=== PATIENT | female | born 1985 | race Caucasian/White ===

== ENCOUNTER → 2022-01-24 | Outpatient (CLI) | payer BC ==
[~2022-01-24] MED LIST: ATIVAN0.5 MG PO; KLONOPIN0.5 MG PO; NO HOME MEDICATIONS; PRENATAL1 TA1 PO; PREVACID 30MG30 M1 PO
== END ==
LOC: COL.RAD 08:35
DX: R10.13 Epigastric pain (principal)
CPT/HCPCS: A9537; J2805

== ENCOUNTER 2022-06-17 11:16 | Day surgery (SDC) | payer MEDICAID ==
[2022-06-17] VITALS (10 sets, daily range): BP systolic 110–130; BP diastolic 61–87; PULSE 67–98; TEMP 98.1–98.7
[~2022-06-17] VITALS: Ht 167.6 cm; Wt 75.7 kg
[2022-06-17] MEDS ORDERED: RETIN-A CR0.1 20GM TP ×2 (12:18→12:19)
[2022-06-17] MEDS ORDERED: MOTRIN 600600 MG/TAB PO (15:17)
[2022-06-17] MEDS ORDERED: NORCO 325 MG-51 TAB PO (15:17)
--- NOTE | 2022-06-17 18:10 | NUR ---
Pt recently arrived to the floor from [facility]. She is alert, but drowsy. Pt was dizzy walking from the [facility] cart to her bed. She has been resting for past 45 minutes. She still reports feeling a little dizzy. Pt does not have the urge to void at this time. Gave her ice water and jello
--- NOTE | 2022-06-17 21:45 | NUR ---
NOTIFIED DR BECK PT WISHES TO STAY THE NIGHT, HAVING MILD DIZZINESS WHEN STANDING UP. OKAYED BY DR BECK.
--- NOTE | 2022-06-17 21:47 | NUR ---
PT REPORTS MILD DISCOMFORT TO ABD AFTER BEING UP TO THE BATHROOM. MOTRIN 600MG PO GIVEN. INT TO [facility].
--- NOTE | 2022-06-17 23:30 | NUR ---
PT REPORTS GOOD RELIEF OF DISCOMFORT WITH MOTRIN.
[2022-06-18 03:18] VITALS: BP 106/55; PULSE 66; TEMP 98.4
--- NOTE | 2022-06-18 05:00 | NUR ---
PT REPORTS PAIN WITH ACTIVITY, NONE LAYING DOWN. MOTRIN 600MG PO GIVEN FOR ABD PAIN WITH ACTIVITY.
[2022-06-18 07:28] VITALS: BP 101/69; PULSE 66; TEMP 98.1
--- NOTE | 2022-06-18 08:16 | NUR ---
Patient awake and alert, sitting in bed. No dizziness, lightheadedness, or nausea reported this AM. Moderate pain in RUQ and back. States she would rather try to relieve pain with non narcotic medications. PRN given. Breakfast ordered, states she thins she will be ready to go home after breakfast.
--- NOTE | 2022-06-18 10:02 | NUR ---
Patient discharged to home, taken by significant other. Per [facility] to discharge home this AM before seen by provider with discharge orders from Dr. Aviles in place. Tolerated breakfast well, moderate pain reported that is relieved by PRNs. Educated on discharge instructions and new medications, pt verbalized understanding. IV removed. Safely assisted to car by nursing staff.
== END 2022-06-18 10:04 | disposition home or self-care (01) ==
LOC: SDCO 11:16 → SURG 17:25 → SDCO 06-18 10:04
DX: K81.1 Chronic cholecystitis (principal); K82.8 Other specified diseases of gallbladder
CPT/HCPCS: OP; J0690; J1170; J1885; J2250; J2704; J3010; J7120; Q9967

== ENCOUNTER 2022-06-24 09:59 | Outpatient (CLI) | payer MEDICAID ==
[~2022-06-24] VITALS: Ht 167.6 cm; Wt 75.1 kg
[~2022-06-24 09:59] MED LIST changes: +MOTRIN 600600 MG/TAB PO; +NORCO 325 MG-51 TAB PO; +RETIN-A CR0.1 20GM TP
[2022-06-24 10:22] VITALS: BP 108/68; PULSE 67; TEMP 98
[2022-06-24 10:22] LABS: BASO # 0.1 K/mm3 (0.0-0.2); BASO % 0.8 % (0.0-2.0); EOS # 0.1 K/mm3 (0.0-0.7); EOS % 1.8 % (0.0-4.0); GRAN # 4.4 K/mm3 (1.4-6.5); GRAN % 66.3 % (42.2-75.2); HEMATOCRIT 46.6 % (37.0-47.0); HEMOGLOBIN 16.3 g/dl (12.5-16.0); LYMPH # 1.6 K/mm3 (1.2-3.4); LYMPH % 24.2 % (20.0-51.0); MEAN CELL VOLUME 88 fl (80.0-100.0); MEAN CORPUSCULAR HEMOGLOBIN 31 pg (27-31); MEAN CORPUSCULAR HGB CONC 35 g/dl (33.0-37.0); MEAN PLATELET VOLUME 8.5 fl (7.4-10.4); MONO # 0.4 K/mm3 (0.1-0.6); MONO % 6.7 % (1.7-9.3); PLATELET COUNT 370 K/mm3 (130-400); RED BLOOD COUNT 5.32 M/mm3 (4.10-5.30); REDCELL DISTRIBUTION WIDTH-CV 11.7 % (11.5-14.5)
[2022-06-24 10:40] LABS: ALBUMIN 4.6 gm/dL (3.5-5.0); BILIRUBIN,TOTAL 1.3 mg/dL (0.2-1.2); CALCIUM 9.9 mg/dL (8.4-10.2); CREATININE, serum 0.83 mg/dL (0.57-1.11); POTASSIUM 4.3 mmol/L (3.5-4.5); TOTAL PROTEIN 7.9 gm/dL (6.2-8.1)
[2022-06-24 11:35] VITALS: BP 116/74; PULSE 62
--- NOTE | 2022-06-24 11:40 | NUR ---
Pt tolerated several saltine crackers and glass of water. She ambulates to restroom with steady gait. IV DC'd, site wrapped with coban. She exits dept with steady gait.
== END 2022-06-24 11:40 | disposition home or self-care (01) ==
LOC: EUO 09:59
PROVIDERS: Surgery
DX: Z51.81 Encounter for therapeutic drug level monitoring (principal)
CPT/HCPCS: J7030